=== PATIENT | female | born 1955 | race Caucasian/White ===

== ENCOUNTER → 2019-01-16 16:57 | Outpatient (CLI) | payer BC, SELFPAY ==
[2019-01-16 17:38] LABS: Vancomycin,Trough 11.2 mcg/ml (10.0-20.0)
== END ==
PROVIDERS: Visit Provider Internal Medicine Infectious Disease
DX: Z51.81 Encounter for therapeutic drug level monitoring (principal)
CPT/HCPCS: 80202

== ENCOUNTER 2019-01-18 08:40 | Outpatient (CLI) | payer BC, SELFPAY ==
[2019-01-18 09:10] VITALS: BP 151/70; PULSE 58; RESP 18; O2SAT 98
[2019-01-18 09:40] VITALS: BP 166/73; PULSE 55; RESP 18
[2019-01-18 10:10] VITALS: BP 159/91; PULSE 59; RESP 18
== END 2019-01-18 10:30 | disposition home or self-care (01) ==
LOC: INF 08:53
PROVIDERS: Visit Provider Internal Medicine Infectious Disease
DX: M86.169 Other acute osteomyelitis, unspecified tibia and fibula (principal)
CPT/HCPCS: 96365; J2185

== ENCOUNTER → 2019-01-23 17:45 | Outpatient (CLI) | payer BC, SELFPAY ==
[2019-01-23 18:12] LABS: Basophils % 0.4 % (0.1-2.0); Eosinophils # 0.3 K/mm3 (0.0-0.4); Hematocrit 32.7 % (37.0-47.0); Hemoglobin 9.9 g/dL (12.2-16.2); Lymphocytes # 1.3 K/mm3 (0.7-4.5); Lymphocytes % 23.6 % (10-50); Mean Corpuscular HGB Conc 30.3 g/dL (31.8-35.4); Mean Corpuscular Hemoglobin 27.6 pg (27.0-31.2); Mean Corpuscular Volume 91.1 fl (81-99); Monocytes # 0.4 K/mm3 (0.1-1.0); Monocytes % 7.4 % (1.7-9.3); Neutrophils # 3.6 K/mm3 (1.8-7.8); Neutrophils % 63.5 % (37.0-80.0); Platelet Count 365 K/mm3 (142-424); Red Blood Count 3.59 M/mm3 (4.20-5.40); Red Cell Distribution Width 13.7 % (11.5-17.5); White Blood Count 5.6 K/mm3 (4.8-10.8)
[2019-01-23 19:17] LABS: Alanine Aminotransferase 9 U/L (12-78); Albumin Level 2.8 gm/dL (3.4-5.0); Albumin/Globulin Ratio 0.8 (1.1-1.8); Alkaline Phosphatase 103 U/L (46-116); Aspartate Amino Transferase 8 U/L (15-37); Bilirubin,Total 0.3 mg/dL (0.2-1.0); Blood Urea Nitrogen 9 mg/dL (7-18); C-Reactive Protein 1.3 mg/dL (0.0-0.9); Calcium 8.9 mg/dL (8.5-10.1); Carbon Dioxide 30 mmol/L (21.0-32.0); Chloride 105 mmol/L (98-107); Creatinine,Serum 0.98 mg/dL (0.55-1.02); Estimated Glomerular Filt Rate 57 ml/min (>60); GFR (African American) 69 ML/MIN (>60); Globulin 3.5 gm/dl (1.3-3.2); Glucose 103 mg/dL (74-106); Sodium 145 mmol/L (136-145); Total Protein,Serum 6.3 gm/dL (6.4-8.2)
== END ==
PROVIDERS: Visit Provider Internal Medicine Infectious Disease
DX: S81.801D Unspecified open wound, right lower leg, subsequent encounter (principal); A49.9 Bacterial infection, unspecified
CPT/HCPCS: 80053; 80202; 85025; 86140

== ENCOUNTER 2019-01-30 15:45 | Outpatient (CLI) | payer BC, SELFPAY ==
[2019-01-30 15:46] VITALS: BMI 25.7
[2019-01-30 15:57] LABS: Eosinophils # 0.4 K/mm3 (0.0-0.4); Eosinophils % 8.7 % (0.1-12.0); Hematocrit 31.1 % (37.0-47.0); Hemoglobin 9.5 g/dL (12.2-16.2); Lymphocytes # 1.2 K/mm3 (0.7-4.5); Lymphocytes % 27.5 % (10-50); Mean Corpuscular HGB Conc 30.7 g/dL (31.8-35.4); Mean Corpuscular Hemoglobin 27.6 pg (27.0-31.2); Mean Corpuscular Volume 90.1 fl (81-99); Mean Platelet Volume 6.7 fl (7.4-10.4); Monocytes # 0.4 K/mm3 (0.1-1.0); Neutrophils # 2.4 K/mm3 (1.8-7.8); Neutrophils % 54.8 % (37.0-80.0); Platelet Count 368 K/mm3 (142-424); Red Blood Count 3.45 M/mm3 (4.20-5.40); Red Cell Distribution Width 13.9 % (11.5-17.5); White Blood Count 4.5 K/mm3 (4.8-10.8)
[2019-01-30 16:08] LABS: Alanine Aminotransferase 7 U/L (12-78); Albumin Level 2.8 gm/dL (3.4-5.0); Albumin/Globulin Ratio 0.7 (1.1-1.8); Alkaline Phosphatase 111 U/L (46-116); Anion Gap 12.2 mEq/L (5-15); Aspartate Amino Transferase 14 U/L (15-37); Bilirubin,Total 0.4 mg/dL (0.2-1.0); Blood Urea Nitrogen 9 mg/dL (7-18); Carbon Dioxide 28 mmol/L (21.0-32.0); Chloride 106 mmol/L (98-107); Creatinine Clearance Estimated 59 mL/min (50-200); Creatinine,Serum 1.04 mg/dL (0.55-1.02); Estimated Glomerular Filt Rate 54 ml/min (>60); GFR (African American) 65 ML/MIN (>60); Globulin 3.8 gm/dl (1.3-3.2); Glucose 113 mg/dL (74-106); Potassium 3.2 mmoL/L (3.5-5.1); Sodium 143 mmol/L (136-145); Total Protein,Serum 6.6 gm/dL (6.4-8.2); Vancomycin,Trough 14.5 mcg/ml (10.0-20.0)
== END 2019-01-30 16:00 | disposition home or self-care (01) ==
LOC: INF 15:45
PROVIDERS: Visit Provider Internal Medicine Infectious Disease
DX: Z00.00 Encounter for general adult medical examination without abnormal findings (principal); M86.169 Other acute osteomyelitis, unspecified tibia and fibula
CPT/HCPCS: 80053; 80202; 85025; 86140

== ENCOUNTER → 2019-02-06 16:55 | Outpatient (CLI) | payer BC, SELFPAY ==
[2019-02-06 17:20] LABS: Basophils % 0.4 % (0.1-2.0); Eosinophils # 0.6 K/mm3 (0.0-0.4); Eosinophils % 11.1 % (0.1-12.0); Hematocrit 30.1 % (37.0-47.0); Hemoglobin 9.3 g/dL (12.2-16.2); Lymphocytes # 1.2 K/mm3 (0.7-4.5); Lymphocytes % 22.2 % (10-50); Mean Corpuscular Hemoglobin 27.7 pg (27.0-31.2); Mean Corpuscular Volume 89.4 fl (81-99); Mean Platelet Volume 7.3 fl (7.4-10.4); Monocytes # 0.4 K/mm3 (0.1-1.0); Monocytes % 8.1 % (1.7-9.3); Neutrophils # 3.2 K/mm3 (1.8-7.8); Neutrophils % 58.2 % (37.0-80.0); Platelet Count 272 K/mm3 (142-424); Red Blood Count 3.36 M/mm3 (4.20-5.40); Red Cell Distribution Width 14.2 % (11.5-17.5); White Blood Count 5.4 K/mm3 (4.8-10.8)
[2019-02-06 18:53] LABS: Alanine Aminotransferase 11 U/L (12-78); Albumin Level 2.9 gm/dL (3.4-5.0); Albumin/Globulin Ratio 0.9 (1.1-1.8); Alkaline Phosphatase 109 U/L (46-116); Anion Gap 12.5 mEq/L (5-15); Aspartate Amino Transferase 14 U/L (15-37); Bilirubin,Total 0.3 mg/dL (0.2-1.0); Blood Urea Nitrogen 10 mg/dL (7-18); C-Reactive Protein 0.5 mg/dL (0.0-0.9); Calcium 8.5 mg/dL (8.5-10.1); Carbon Dioxide 29 mmol/L (21.0-32.0); Chloride 106 mmol/L (98-107); Estimated Glomerular Filt Rate 56 ml/min (>60); GFR (African American) 68 ML/MIN (>60); Globulin 3.4 gm/dl (1.3-3.2); Glucose 92 mg/dL (74-106); Potassium 3.5 mmoL/L (3.5-5.1); Sodium 144 mmol/L (136-145); Total Protein,Serum 6.3 gm/dL (6.4-8.2); Vancomycin,Trough 13.5 mcg/ml (10.0-20.0)
== END ==
PROVIDERS: Visit Provider Internal Medicine Infectious Disease
DX: S81.801D Unspecified open wound, right lower leg, subsequent encounter (principal); A49.9 Bacterial infection, unspecified
CPT/HCPCS: 80053; 80202; 85025; 86140

== ENCOUNTER 2019-02-07 15:40 | Outpatient (CLI) | payer BC, SELFPAY ==
[2019-02-07 15:45] VITALS: BP 161/86; PULSE 60; RESP 18; TEMP 36.6; O2SAT 98
[2019-02-07 16:15] VITALS: BP 160/81; PULSE 62; RESP 18; O2SAT 97
[2019-02-07 16:30] VITALS: BP 185/89; PULSE 66; RESP 20; O2SAT 99
[2019-02-07 18:35] VITALS: BP 194/89; PULSE 80; RESP 20; TEMP 36.8; O2SAT 96
== END 2019-02-07 18:36 | disposition home or self-care (01) ==
LOC: INF 15:40
PROVIDERS: Visit Provider Internal Medicine Infectious Disease
DX: M86.169 Other acute osteomyelitis, unspecified tibia and fibula (principal)
CPT/HCPCS: 96365; 96366; 96367

== ENCOUNTER 2021-07-02 16:49 | Emergency (ER) | payer MEDICARE, SELFPAY ==
[2021-07-02 16:50] VITALS: BP 149/87; PULSE 90; RESP 16; TEMP 36.8; O2SAT 98; BMI 26.6
[2021-07-02 17:29] LABS: Basophils % 0.5 % (0.1-2.0); Eosinophils % 0.1 % (0.1-12.0); Hematocrit 33.5 % (37.0-47.0); Hemoglobin 10.1 g/dL (12.2-16.2); Lymphocytes # 1.2 K/mm3 (0.7-4.5); Lymphocytes % 18.8 % (10-50); Mean Corpuscular Hemoglobin 19.1 pg (27.0-31.2); Mean Corpuscular Volume 63.5 fl (81-99); Mean Platelet Volume 7.7 fl (7.4-10.4); Monocytes # 0.6 K/mm3 (0.1-1.0); Monocytes % 8.5 % (1.7-9.3); Neutrophils # 4.7 K/mm3 (1.8-7.8); Neutrophils % 72.1 % (37.0-80.0); Platelet Count 463 K/mm3 (142-424); Red Blood Count 5.28 M/mm3 (4.20-5.40); Red Cell Distribution Width 19.5 % (11.5-17.5); White Blood Count 6.5 K/mm3 (4.8-10.8)
[2021-07-02 17:41] LABS: Alanine Aminotransferase 26 U/L (12-78); Albumin Level 5.2 g/dl (3.5-5.0); Albumin/Globulin Ratio 1.3 (1.1-1.8); Alkaline Phosphatase 107 U/L (38-126); Anion Gap 25.2 mEq/L (5-15); Aspartate Amino Transferase 33 U/L (14-36); Bilirubin,Total 0.5 mg/dl (0.2-1.3); Blood Urea Nitrogen 42 mg/dl (7-17); Calcium 8.8 mg/dl (8.4-10.2); Carbon Dioxide 16 mmol/L (22.0-30.0); Chloride 98 mmol/L (98-107); Creatinine Clearance Estimated 37 mL/min (50-200); Estimated Glomerular Filt Rate 30 ml/min (>60); GFR (African American) 36 ML/MIN (>60); Globulin 3.9 g/dL (1.3-3.2); Glucose 151 mg/dl (74-100); Potassium 3.2 mmoL/L (3.5-5.1); Sodium 136 mmol/L (136-145); Total Protein,Serum 9.1 g/dl (6.3-8.2)
--- NOTE | 2021-07-02 18:19 | PC.NURSE ---
patient to restroom by wheelchair
[2021-07-02 18:34] LABS: Microscopic, Urine URINE MICROSCOPIC (MICROSCOPIC)
--- NOTE | 2021-07-02 18:55 | HMH.EDGENADL ---
ED Disposition Clinical Impression: Gastroenteritis, Dehydration Disposition: Home, Self-Care Condition on Discharge: Good Instructions: DI for Diarrhea and Traveler's Diarrhea -- Adult, DI for Diarrhea and Traveler's Diarrhea -- Child, DI for Nausea -- Adult, DI for Nausea -- Child Additional Instructions: ED with any new or worsening symptoms Referrals: Provider,Referral, [Primary Care Provider] - - Critical Care Critical Care Time: No Attestation: On 07/02/21, the high probability of a clinically significant, sudden or life threatening deterioration of the following system(s) required my full and direct attention, intervention and personal management. The time I documented below is in addition to time spent performing reported procedures but includes the following listed in this critical care notation. Medical Decision Making - Medical Records Medical records reviewed: Yes: I reviewed the patient's medical records. - Gerry Inquiry Pt receiving controlled substance: No Vital Signs: 07/02/21 16:50 Temperature 98.2 F Temperature Source Oral Pulse Rate [Radial] 90 Respiratory Rate 16 Blood Pressure [Right Arm] 149/87 H Blood Pressure Mean [Right Arm] 107 Blood Pressure Position [Right Arm] Sitting 02 Sat by Pulse Oximetry 98 Oxygen Delivery Method Room Air - Lab Data Lab Results 07/02/21 17:20: WBC 6.5, RBC 5.28, Hgb 10.1 L, Hct 33.5 L, MCV 63.5 L, MCH 19.1 L, MCHC 30.0 L, RDW 19.5 H, Plt Count 463 H, MPV 7.7, Neut % (Auto) 72.1, Lymph % (Auto) 18.8, [place] % (Auto) 8.5, Eos % (Auto) 0.1, Baso % (Auto) 0.5, Neut # (Auto) 4.7, Lymph # (Auto) 1.2, [place] # (Auto) 0.6, Eos # (Auto) 0.0, Baso # (Auto) 0.0 07/02/21 17:20: Sodium 136, Potassium 3.2 L, Chloride 98, Carbon Dioxide 16 L, Anion Gap 25.2 H, BUN 42 H, Creatinine 1.70 H, Estimated Creat Clear 37, Estimated GFR 30 L, Est GFR ( Amer) 36 L, Glucose 151 H, Calcium 8.8, Total Bilirubin 0.5, AST 33, ALT 26, Alkaline Phosphatase 107, Total Protein 9.1 H, Albumin 5.2 H, Globulin 3.9 H, Albumin/Globulin Ratio 1.3 07/02/21 18:30: Urine Color Yellow, Urine Appearance Clear, Urine pH 6.0, Ur Specific [place] 1.015, Urine Protein Trace, Urine Glucose (UA) Negative, Urine Ketones Negative, Urine Blood Negative, Urine Nitrate Negative, Urine Bilirubin Negative, Urine Urobilinogen 0.2, Ur Leukocyte Esterase Negative, Urine RBC None, Urine WBC Occasional, Ur Squamous Epith Cells 3-5, Urine Bacteria None 07/02/21 19:28: Sodium 132 L, Potassium 2.9 L*, Chloride 100, Carbon Dioxide 20 L, Anion Gap 14.9, BUN 33 H, Creatinine 1.40 H, Estimated Creat Clear 44, Estimated GFR 38 L, Est GFR ( Amer) 46 L D, Glucose 104 H D, Calcium 7.4 L Result diagrams: 07/02/21 17:20 07/02/21 19:28 Orders (Tests/Meds): ED MEDICATIONS Generic Name Dose Route Start Last Admin Trade Name Freq PRN Reason Stop Dose Admin Lactated Ringer's 1,000 mls @ 999 mls/hr 07/02/21 17:15 07/02/21 17:25 Lactated Ringer's 1000 Ml Bag IV 07/02/21 18:15 999 mls/hr .Q1H1M LEN Administration Lactated Ringer's 1,000 mls @ 999 mls/hr 07/02/21 18:15 07/02/21 18:20 Lactated Ringer's 1000 Ml Bag IV 07/02/21 19:15 999 mls/hr .Q1H1M LEN Administration Discontinued Medications Generic Name Dose Route Start Last Admin Trade Name Freq PRN Reason Stop Dose Admin Ondansetron HCl 4 mg 07/02/21 18:26 07/02/21 18:27 Ondansetron 4mg/2ml Vial IV 07/02/21 18:27 4 mg ONCE ONE Administration Potassium Chloride 40 meq 07/02/21 19:49 07/02/21 19:55 Potassium Chloride 20meq Tab PO 07/02/21 19:50 40 meq ONCE ONE Administration Promethazine HCl 25 mg 07/02/21 17:05 07/02/21 17:25 Promethazine Hcl 25mg/Ml 1ml Vial IV 07/02/21 17:06 25 mg ONCE ONE Administration Sodium Chloride 25 ml 07/02/21 17:05 Sodium Chloride 0.9% 25ml Bag IV 07/02/21 17:06 ONCE ONE ORDERS Category Date Time Status Diarrhea 23 Panel, PCR Stat Lab 07/02/21 19:10 Recei
[2021-07-02 19:03] LABS: Appearance,Urine CLEAR (Clear); Bilirubin,Urine Negative (Negative); Blood, Urine Negative (Negative); Color,Urine YELLOW (Yellow); Glucose,Urine (UA) Negative (Negative); Ketones,Urine Negative (Negative); Leukocyte Esterase,Urine Negative (Negative); Nitrate,Urine Negative (Negative); Protein,Urine TRACE (Negative); Specific Gravity, Urine 1.015 (1.005-1.030); Urobilinogen,Urine 0.2 EU/dl (0.2)
[2021-07-02 19:14] LABS: Adenovirus F 40/41, stool Not Detected (NotDetected); Astrovirus Not Detected (NotDetected); Campylobacter Not Detected (NotDetected); Clostridium Difficile A/B, PCR Not Detected (NotDetected); Cryptosporidium Not Detected (NotDetected); Cyclospora Cayetanesis Not Detected (NotDetected); Entamoeba histolytica Not Detected (NotDetected); Enteroaggregative E coli Not Detected (NotDetected); Enteropathogenic E coli Not Detected (NotDetected); Enterotoxigenic E coli Not Detected (NotDetected); Giardia lamblia Not Detected (NotDetected); Norovirus Not Detected (NotDetected); Plesimonas Shigalloides, PCR Not Detected (NotDetected); Salmonella, PCR Not Detected (NotDetected); Sapovirus Not Detected (NotDetected); Shiga-like toxin E coli Not Detected (NotDetected); Shigella Enterovasive E coli Not Detected (NotDetected); Vibrio Cholerae Not Detected (NotDetected); Vibrio, PCR Not Detected (NotDetected); Yersinia Entercolitica, PCR Not Detected (NotDetected)
[2021-07-02 19:40] LABS: WBC,Urine Occasional #/hpf (0-3)
[2021-07-02 19:47] LABS: Chloride 100 mmol/L (98-107)
[2021-07-02 19:48] LABS: Sodium 132 mmol/L (136-145)
[2021-07-02 19:49] LABS: Potassium 2.9 mmoL/L (3.5-5.1)
[2021-07-02 19:50] LABS: Blood Urea Nitrogen 33 mg/dl (7-17); Creatinine Clearance Estimated 44 mL/min (50-200); Estimated Glomerular Filt Rate 38 ml/min (>60); GFR (African American) 46 ML/MIN (>60)
[2021-07-02 19:51] LABS: Anion Gap 14.9 mEq/L (5-15); Calcium 7.4 mg/dl (8.4-10.2); Carbon Dioxide 20 mmol/L (22.0-30.0); Glucose 104 mg/dl (74-100)
--- NOTE | 2021-07-02 19:55 | PC.NURSE ---
Critical lab called, potassium 2.9, notified. Orders to give 40meq of potassium given.
[2021-07-02 20:15] VITALS: BP 139/69; PULSE 82; RESP 16; TEMP 36.6; O2SAT 99
[2021-07-02 22:36] LABS: Rotavirus A Detected (NotDetected)
== END 2021-07-02 20:27 | disposition home or self-care (01) ==
PROVIDERS: Emergency Provider Student in an Organized Health Care Education/Training Program
DX: K52.9 Noninfective gastroenteritis and colitis, unspecified (principal); E86.0 Dehydration; N17.9 Acute kidney failure, unspecified; I10 Essential (primary) hypertension; K21.9 Gastro-esophageal reflux disease without esophagitis; E78.5 Hyperlipidemia, unspecified; Z79.899 Other long term (current) drug therapy
CPT/HCPCS: 80048; 80053; 81001; 85025; 87507; 96365; 96366; 96375; 99284; J2405

== ENCOUNTER 2021-07-04 16:23 | Emergency (ER) | payer MEDICARE, SELFPAY ==
[2021-07-04 17:10] VITALS: BP 145/73; PULSE 69; RESP 20; TEMP 36.9; O2SAT 95; BMI 25.7
--- NOTE | 2021-07-04 17:45 | HMH.EDUTC ---
[facility] [place] Imp[place]: Dehydration Disposition: Home, Self-Care Condition on Discharge: Good Instructions: DI for Dehydration -- Adult, DI for Hypokalemia Additional Instructions: Follow up with Family Doctor for further treatment and evaluation Return if needed Straight to ER if any life threatening symptoms Referrals: Jesse Ngo MD [Primary Care Provider] - As needed Time of Disposition: 18:59 Medical Decision Making - Gerry Inquiry Pt receiving controlled substance: No Gerry was queried for this patient: No Vital Signs: 07/04/21 17:10 07/04/21 18:31 Temperature 98.5 F 98.5 F Temperature Source Oral Pulse Rate 69 Pulse Rate [Right Brachial] 69 Respiratory Rate 20 20 Blood Pressure 145/73 H Blood Pressure [Right Arm] 145/73 H Blood Pressure Mean [Right Arm] 97 Blood Pressure Source [Right Arm] Automatic Cuff Blood Pressure Position [Right Arm] Sitting 02 Sat by Pulse Oximetry 95 Oxygen Delivery Method Room Air - Lab Data Lab Results 07/04/21 18:10: Sodium 137, Potassium 2.9 L*, Chloride 100, Carbon Dioxide 24, Anion Gap 15.9 H, BUN 11 D, Creatinine 0.90 D, Estimated Creat Clear 60, Estimated GFR 63, Est GFR ( Amer) 76 D, Glucose 109 H, Calcium 8.7, Total Bilirubin 0.4, AST 28, ALT 22, Alkaline Phosphatase 104, Total Protein 8.2, Albumin 4.7, Globulin 3.5 H, Albumin/Globulin Ratio 1.3 Result diagrams: 07/04/21 18:10 Orders (Tests/Meds): ED MEDICATIONS Discontinued Medications Generic Name Dose Route Start Last Admin Trade Name Freq PRN Reason Stop Dose Admin Potassium Chloride 40 meq 07/04/21 18:47 07/04/21 18:54 Potassium Chloride 20meq Tab PO 07/04/21 18:48 40 meq ONCE ONE Administration Medical Decision Narrative: Labs improved from 07/01/10 Potassium 2.9 will give 40MEQ and have patient follow up with PCP [place] [facility] [place] - General Stated complaint: Follow up ER visit Time Seen by Provider: 07/04/21 17:45 Mode of Arrival: Ambulatory Source of Information: Patient Limitations: No Limitations Description of Symptoms (Recalled from Triage Doc. by RN): PATIENT STATES SHE WAS SEEN IN ER ON 07/02/21 FOR DEHYDRATION. SHE REPORTS SHE WAS GIVEN 2 LITERS OF FLUID AND WAS TOLD BY ER MD TO FOLLOW UP IN [facility] TO HAVE FOLLOW UP BLOOD WORK DONE HEENT Symptoms (Recalled from RN notes): No Resp Symptoms (Recalled from RN notes): No Skin Symptoms (Recalled from RN notes): No MS Symptoms (Recalled from RN notes): No Functional Status (Recalled from RN notes): WNL - History of Present Illness Provider Complaint: Patient states that she was seen in the ED 2 days ago states that they wanted to admitt her to the hospital but she didnt want to stay so she went home and was told to return today to get her Creatine rechecked to see if it is improving Patient states that vomiting has stopped but she is still having diarrhea States that she has been trying to drink plenty of fluids and eating bananas and is feeling better but came back in today as instructed by ED Physician to get her blood checked - Related Data Home Medications Medication Instructions Recorded Confirmed Atorvastatin Calcium [Atorvastatin 20 mg PO HS 12/10/18 02/07/19 20mg Tab] Omeprazole [Omeprazole 40mg 40 mg PO DAILY 12/10/18 02/07/19 Capsule] Trazodone HCl 100 mg PO HS 12/10/18 02/07/19 atenoloL [Atenolol 100mg Tab] 100 mg PO DAILY 12/10/18 02/07/19 Gabapentin [Gabapentin 100mg Cap] 100 mg PO Q8H 01/18/19 02/07/19 Oxycodone HCl [Oxycodone (IR) 10mg 10 mg PO Q6HP PRN 01/18/19 02/07/19 Tab] Promethazine HCl [Phenergan 25mg 25 mg PO Q6H PRN 01/18/19 02/07/19 tab] Meropenem [Meropenem 1GM Vial] 1 gm IV TID 02/07/19 02/07/19 Vancomycin HCl in 5 % Dextrose 1 gm IV DAILY 02/07/19 02/07/19 [Vancomycin 1 Gram/250 ml-D5w] Allergies Allergy/AdvReac Type Severity Reaction Status Date / Time bee pollen Allergy Intermediate Difficulty Verified 01/18/19
[2021-07-04 18:31] VITALS: BP 145/73; PULSE 69; RESP 20; TEMP 36.9; O2SAT 95
[2021-07-04 18:37] LABS: Alanine Aminotransferase 22 U/L (12-78); Albumin Level 4.7 g/dl (3.5-5.0); Albumin/Globulin Ratio 1.3 (1.1-1.8); Alkaline Phosphatase 104 U/L (38-126); Anion Gap 15.9 mEq/L (5-15); Aspartate Amino Transferase 28 U/L (14-36); Bilirubin,Total 0.4 mg/dl (0.2-1.3); Blood Urea Nitrogen 11 mg/dl (7-17); Calcium 8.7 mg/dl (8.4-10.2); Carbon Dioxide 24 mmol/L (22.0-30.0); Chloride 100 mmol/L (98-107); Creatinine Clearance Estimated 60 mL/min (50-200); Estimated Glomerular Filt Rate 63 ml/min (>60); GFR (African American) 76 ML/MIN (>60); Globulin 3.5 g/dL (1.3-3.2); Glucose 109 mg/dl (74-100); Sodium 137 mmol/L (136-145); Total Protein,Serum 8.2 g/dl (6.3-8.2)
[2021-07-04 18:42] LABS: Potassium 2.9 mmoL/L (3.5-5.1)
== END 2021-07-04 19:04 | disposition home or self-care (01) ==
LOC: ER 16:29 → UTC 16:43
PROVIDERS: Emergency Provider Nurse Practitioner; PCP Internal Medicine
DX: E86.0 Dehydration (principal); I10 Essential (primary) hypertension; E78.5 Hyperlipidemia, unspecified
CPT/HCPCS: G0463; 80053; 99212

== ENCOUNTER 2022-04-07 18:22 | Emergency (ER) | payer MEDICARE, SELFPAY ==
[2022-04-07 19:23] VITALS: BP 153/67; PULSE 63; RESP 18; TEMP 36.8; O2SAT 97; BMI 25.7
--- NOTE | 2022-04-07 19:42 | EXP.UTC ---
Discharge Plan Prescriptions Prescriptions: No Action atorvastatin 20 MG tablet 20 mg PO HS atenolol 100 MG tablet 100 mg PO DAILY omeprazole 40 MG capsule,delayed release(DR/EC) 40 mg PO DAILY trazodone 100 MG tablet 100 mg PO HS promethazine 25 MG tablet 25 mg PO Q6H PRN (Reason: Nausea And Vomiting) gabapentin 100 MG capsule 100 mg PO Q8H oxycodone 10 MG tablet 10 mg PO Q6HP PRN (Reason: PAIN) meropenem 1 GM recon soln 1 gm IV TID vancomycin in dextrose 5 % 1 GM/250 ML solution 1 gm IV DAILY Referrals Follow up/Referrals: Provider,Referral, MD [Primary Care Provider] - See instructions Activity Restrictions/Add. Instructions Additional Instructions/Restrictions: Increase fluids, water and not soda or tea. Can drink cranberry juice or cranberry extract. White front to back Wear cotton underwear Empty bladder after intercourse Start antibiotics immediately and make sure you take the full course although you may start to see improvement over the next 48 hours. You can eat yogurt or take probiotics to decrease diarrhea or yeast infection caused by the antibiotic Be sure to follow-up anytime for new or worsening symptoms in 48 hours for wound urine culture results be sure to let you PCP no recent urine for culture so they can request records and ensure that you have appropriate antibiotic if you are not getting better or getting worse. If symptoms worsen or do not improve return or be seen in the ER. Follow-up with primary care this week. Clinical Impressions Clinical Impression: Acute UTI Instructions Patient Instructions: Urinary Tract Infection Discharge ED Provider: Jennifer ([facility])Khanh [facility] [place] HPI General Stated complaint: poss uti Mode of Arrival: Ambulatory Source of Information: Patient Limitations: No Limitations Time Seen by Provider: 04/07/22 19:42 Description of Symptoms (Recalled from Triage Doc. by RN): pt comes in with c/o uti. symptoms began this afternoon. pressure and burning with urination. HEENT Symptoms (Recalled from RN notes): No Resp Symptoms (Recalled from RN notes): No Skin Symptoms (Recalled from RN notes): No MS Symptoms (Recalled from RN notes): No Functional Status (Recalled from RN notes): n/a History of Present Illness Provider Complaint: 66 yr old female presents for c/o pressure,freq,urgency and burning with urination. Related Data Home Medications Medication Instructions Recorded Confirmed atenolol 100 mg tablet 100 mg PO DAILY ., 12/10/18 02/07/19 atorvastatin 20 mg tablet 20 mg PO HS cholesterol 12/10/18 02/07/19 omeprazole 40 mg capsule,delayed 40 mg PO DAILY GERD 12/10/18 02/07/19 release trazodone 100 mg tablet 100 mg PO HS sleep 12/10/18 02/07/19 gabapentin 100 mg capsule 100 mg PO Q8H NEUROPATHY 01/18/19 02/07/19 oxycodone 10 mg tablet 10 mg PO Q6HP PRN PAIN 01/18/19 02/07/19 promethazine 25 mg tablet 25 mg PO Q6H PRN Nausea And 01/18/19 02/07/19 Vomiting meropenem 1 gram intravenous 1 gm IV TID Infection 02/07/19 02/07/19 solution vancomycin 1 gram/250 mL in 1 gm IV DAILY Infection 02/07/19 02/07/19 dextrose 5 % intravenous Allergies Allergy/AdvReac Type Severity Reaction Status Date / Time bee pollen Allergy Intermediate Difficulty Verified 04/07/22 19:26 Breathing Worker's Comp Is this a Worker's Comp case?: No [facility] Disclaimer: The information contained in this section may have been updated after the patient was seen, as this information can be updated by other users. Social History , [employer]) Smoking Status: Smoker, status unknown alcohol intake: never current occupational status: retired Travel in the last 8 weeks: Inside the [place] household members: spouse housing: house caffeine: Yes ROS Obtained: Yes All systems reviewed & no additional complaints except as documented Constitutional Const
[2022-04-07 20:01] VITALS: BP 153/67; PULSE 63; RESP 18; TEMP 36.8
[2022-04-07 20:45] LABS: Apearance,Urine Cloudy (Clear); Color,Urine Red (Yellow); PH,Urine 5.5 (5.0-8.5)
[2022-04-07 20:46] LABS: Blood, Urine 3+ (Negative); Glucose,Urine (UA) Negative (Negative); Ketones,Urine SMALL (Negative); Protein,Urine 3+ (Negative); Specific Gravity, Urine 1.015 (1.005-1.030)
[2022-04-07 20:47] LABS: Bilirubin,Urine 3+ (Negative); UTC Leukocyte Esterase,Urine 3+ (Negative); UTC Nitrate,Urine Negative (Negative); Urobilinogen,Urine 2 EU/dl (0.2)
== END 2022-04-07 20:02 | disposition home or self-care (01) ==
LOC: UTC 18:25
PROVIDERS: Emergency Provider Nurse Practitioner Family
DX: N39.0 Urinary tract infection, site not specified (principal)
CPT/HCPCS: 81003; 87086; 87088; 87186; 99212; G0463